=== PATIENT | female | born 1945 | race Caucasian/White ===

== ENCOUNTER 2016-10-08 00:09 | Inpatient (IN) | payer OTHER, MEDICARE ==
[2016-10-08] VITALS (34 sets, daily range): BP systolic 106–248; BP diastolic 56–124; PULSE 56–107; RESP 15–34; TEMP 97.6–98.4; O2SAT 66–99
[~2016-10-08] VITALS: Ht 157.5 cm; Wt 84.4 kg
[~2016-10-08 00:09] MED LIST: ASPI81TA82 PO; CLON-352 PO; METO50TA PO; TAB-TAB PO; TUMS500C PO; VITA100L SUCK-ON
[2016-10-08] MEDS ORDERED: ASPIRIN 81 MG CHEW TAB PO ONE (01:00)
[2016-10-08] MEDS ORDERED: SODIUM CHLORIDE 0.9% FLUSH 10 ML FLUSH IVF PRN ×2 (01:00→04:00)
[2016-10-08] MEDS: NITROGLYCERIN 0.4 MG SL 25 TABS/BTL SL SCH ×3 (01:13→01:32)
[2016-10-08] MEDS ORDERED: CLON0.1T PO (01:19)
[2016-10-08] MEDS ORDERED: METO50TA11 PO (01:19)
[2016-10-08] MEDS ORDERED: LOSA25TA PO (01:19)
[2016-10-08] MEDS ORDERED: METO50TA PO (01:19)
[2016-10-08 01:20] LABS: BASOPHIL % 0.6 % (0.0-2.0); EOSINOPHIL # 0.1 TH/MM3 (0-0.4); EOSINOPHIL % 1.2 % (0.0-4.0); HEMATOCRIT 37.3 % (35.0-46.0); HEMO FLAGS DIFF FINAL; LYMPHOCYTE # 2.1 TH/MM3 (1.0-4.8); MEAN CORPUSCULAR HEMOGLOBIN 29.3 PG (27.0-34.0); MEAN CORPUSCULAR HGB CONC 34.1 % (32.0-36.0); MONO % 8.3 % (0.0-8.0); NEUT % 62.9 % (16.0-70.0); PLATELET COUNT 197 TH/MM3 (150-450); RED BLOOD COUNT 4.34 MIL/MM3 (4.00-5.30); RED CELL DISTRIBUTION WIDTH 12.5 % (11.6-17.2); WHITE BLOOD COUNT 7.9 TH/MM3 (4.0-11.0)
[2016-10-08 01:24] LABS: CHLORIDE 101 MEQ/L (98-107); POTASSIUM 3.5 MEQ/L (3.5-5.1); SODIUM (NA) 138 MEQ/L (136-145)
[2016-10-08] MEDS ORDERED: ASPI325T PO (01:24)
[2016-10-08 01:27] LABS: ANION GAP 9 MEQ/L (5-15); BICARBONATE 28.5 MEQ/L (21.0-32.0); BLOOD UREA NITROGEN 18 MG/DL (7-18); MAGNESIUM 1.6 MG/DL (1.5-2.5)
[2016-10-08 01:30] LABS: GLOMERULAR FILTRATION RATE 56 ML/MIN (>89)
[2016-10-08 01:33] LABS: CREATINE KINASE 195 U/L (26-192)
[2016-10-08 01:34] LABS: APTT (PATIENT) 20.9 SEC (24.3-30.1); INTERNATIONAL NORMALIZED RATIO 0.9 RATIO; PROTHROMBIN TIME - PATIENT 10.3 SEC (9.8-11.6)
--- NOTE | 2016-10-08 01:35 | RADRPT ---
EXAM DATE/TIME: 10/08/2016 01:25 [facility] COMPARISON: No previous studies available for comparison. INDICATIONS : Left sided chest pain for 1 week MEDICAL HISTORY : None. SURGICAL HISTORY : None. ENCOUNTER: Initial ACUITY: 1 week PAIN SCORE: 7/10 LOCATION: Left chest FINDINGS: There is cardiomegaly. Lung volumes are diminished. Right lung is clear. On the left a small left eff usion or basilar airspace disease suspected. Osseous structures are intact. CONCLUSION: Blunted left lateral costophrenic angle increased density seen at the left lung base laterally as abo ve. Small effusion versus consolidation are possibilities. Ezra Tovar MD on October 08, 2016 at 1:33 Board Certified Radiologist. This report was verified electronically.
[2016-10-08] MEDS ORDERED: NITROGLYCERIN 2% OINT 1 GM PACKET TOPICAL ONE (01:45)
[2016-10-08] MEDS ORDERED: LABETALOL HCL 100 MG/20 ML VIAL IV PUSH ONE ×2 (01:45→03:00)
[2016-10-08 01:46] LABS: CKMB 2.2 NG/ML (0.5-3.6)
--- NOTE | 2016-10-08 02:21 | RADRPT ---
EXAM DATE/TIME: 10/08/2016 01:57 [facility] COMPARISON: No previous studies available for comparison. INDICATIONS : Cephalgia. Headache for one week. RADIATION DOSE: 60.08 CTDIvol (mGy) MEDICAL HISTORY : Cardiovascular disease. Hypercholesterolemia. Gastroesophageal reflux disease.Fibromyalgia SURGICAL HISTORY : Tonsillectomy. ENCOUNTER: Initial ACUITY: 1 week PAIN SCALE: 7/10 LOCATION: cranial TECHNIQUE: Multiple contiguous axial images were obtained of the head. Using automated exposure control and adj ustment of the mA and/or kV according to patient size, radiation dose was kept as low as reasonably a chievable to obtain optimal diagnostic quality images. DICOM format image data is available electro nically for review and comparison. FINDINGS: No signs of acute infarct, hemorrhage or mass. There are no fractures. There are calcifications of th e bilateral internal carotid arteries and patchy periventricular white matter disease. CONCLUSION: No acute disease. Ezra Tovar MD on October 08, 2016 at 2:19 Board Certified Radiologist. This report was verified electronically.
[2016-10-08] MEDS ORDERED: IOHEXOL 350 MG/ML 10 ML VIAL (for RAD DIAG) IV ONE (02:47)
--- NOTE | 2016-10-08 03:06 | PD ---
HPI Chief Complaint: Chest Pain Time Seen by Provider: 00:56 Travel History International Travel<30 days: No Contact w/Intl Traveler<30days: No Traveled to known affect area: No History of Present Illness HPI 71-year-old female presents to the emergency department by private transportation for complaint of inability to control her blood pressure and noticing some chest discomfort. Patient has high blood pressure. Patient states she takes multiple blood pressure medications and this week because of her blood pressure remaining elevated she has doubled up on all of her blood pressure medications but continues to have issues with blood pressure elevation. Patient states that she's had no change in mentation or sudden onset thunderclap or worst ever headache but has noted some intermittent blurring of vision and some intermittent chest discomfort. Chest discomfort is left-sided and is nonradiating and is not associated with ripping tearing type pain or pleuritic type pain. Patient does not report any shortness of breath sweats or nausea vomiting. Patient has not noticed any new upper extremity or lower extremity numbness tingling or weakness or ataxia of gait. Patient does have chronic peripheral neuropathy and has had some chronic balance disturbance but does not note any new changes. Patient states that times chest pain is quite severe but presently has no chest pain. Patient does take aspirin daily and took aspirin on but none just prior to arrival to the emergency department. Patient has not contacted her primary care provider regarding her difficulty handling her blood pressure as she has appointment next week and just thought she could wait to be seen. Patient's had no recent febrile illness or respiratory illness no recent long distance travel protracted bedrest her surgical procedure. [facility]LY [facility] Past Medical History Narrative Medical Mitral valve prolapse, intermittent SVT, dyslipidemia, hypertension, fibromyalgia GERD tonsillectomy no tobacco use; nursing notes reviewed Heart Rhythm Problems: Yes (TACHYCARDIA) Cardiovascular Problems: Yes (MVP) High Cholesterol: Yes Diminished Hearing: No Fibromyalgia: Yes GERD: Yes Hypertension: Yes Immunizations Current: No Tetanus Vaccination: > 5 Years Menopausal: Yes Past Surgical History Tonsillectomy: Yes Social History Alcohol Use: No Tobacco Use: No Substance Use: No Allergies-Medications (Allergen,Severity, Reaction): Coded Allergies: Penicillin (Verified Allergy, Mild, HIVES, 10/08/16) Morphine (Verified Adverse Reaction, Severe, NAUSEA/VOMITS, 10/08/16) Niacin (Unverified Adverse Reaction, Intermediate, 10/08/16) Uncoded Allergies: water pills (Allergy, Unknown, nausea: h/a, 09/06/08) Reported Meds & Prescriptions Reported Meds & Active Scripts Active Reported Aspirin 325 Mg Tab 650 Mg PO ONCE Losartan (Losartan Potassium) 25 Mg Tab 25 Mg PO HS Clonidine (Clonidine HCl) 0.1 Mg Tab 0.1 Mg PO TID Metoprolol Succinate ER 24 HR (Metoprolol Succinate) 50 Mg Tab 50 Mg PO DAILY Metoprolol Tartrate 50 Mg Tab 50 Mg PO BID Review of Systems Except as stated in HPI: all other systems reviewed are Neg General / Constitutional: No: Fever, Chills Eyes: Positive: Blurred Vision, No: Diploplia, Photophobia, Blind Spots HENT: No: Headaches, Vertigo, Lightheadedness, Congestion, Neck Stiffness, Neck Pain Cardiovascular: Positive: Chest Pain or Discomfort, No: Diaphoresis, Dyspnea on exertion, Edema Respiratory: No: Cough, Shortness of Breath, Wheezing Gastrointestinal: No: Nausea, Vomiting, Abdominal Pain Genitourinary: No: Flank Pain Musculoskeletal: No: Myalgias, Arthralgias, Pain Skin: No Rash Neurologic: No: Weakness, Dizziness, Syncope, Focal Abnormalities, Coordination Problem, Headache, Change in Mentation, Slurred Speech, Paresthesia , Incontinence, Seizures, Sensory Disturbance Psychiatric: Positive: Anxiety Hematologic/Lymphatic: No: Lymph Node Enlargement Physical Exam Narrative GENERAL: Well-developed well-nourished female in no acute distress no respiratory distress SKIN: Warm and dry. HEAD: Atraumatic. Normocephalic. EYES: Pupils equal and round. No scleral icterus. No injection or drainage. ENT: No nasal bleeding or discharge. Mucous membranes pink and moist. NECK: Trachea midline. No JVD. CARDIOVASCULAR: Regular rate and rhythm. RESPIRATORY: No accessory muscle use. Clear to auscultation. Breath sounds equal bilaterally. GASTROINTESTINAL: Abdomen soft, non-tender, nondistended. Hepatic and splenic margins not palpable. MUSCULOSKELETAL: Extremities without clubbing, cyanosis, or edema. No obvious deformities. NEUROLOGICAL: Awake and alert. No obvious cranial nerve deficits. Motor grossly within normal limits. Five out of 5 muscle strength in the arms and legs. Normal speech. PSYCHIATRIC: Appropriate mood and affect; insight and judgment normal. Data Data Last Documented VS Vital Signs Date Time Temp Pulse Resp B/P Pulse Ox O2 Delivery O2 Flow Rate FiO2 10/08/16 03:48 73 190/93 10/08/16 03:16 18 Room Air 10/08/16 03:06 96 10/08/16 01:38 2 10/08/16 00:17 97.8 Orders Electrocardiogram (10/08/16 00:56) Basic Metabolic Panel (Bmp) (10/08/16 00:56) Ckmb (Isoenzyme) Profile (10/08/16 00:56) Complete Blood Count With Diff (10/08/16 00:56) Magnesium (Mg) (10/08/16 00:56) Prothrombin Time / Inr (Pt) (10/08/16 00:56) Act Partial Throm Time (Ptt) (10/08/16 00:56) Troponin I (10/08/16 00:56) Chest, Single Ap (10/08/16 00:56) Ecg Monitoring (10/08/16 00:56) Bilateral Bp Monitoring (10/08/16 00:56) Iv Access Insert/Monitor (10/08/16 00:56) Oximetry (10/08/16 00:56) Oxygen Administration (10/08/16 00:56) Aspirin Chew (Aspirin Chew) (10/08/16 01:00) Sodium Chloride 0.9% Flush (Ns Flush) (10/08/16 01:00) Nitroglycerin Sl (Nitrostat Sl) (10/08/16 01:00) CKMB (10/08/16 01:05) CKMB% (10/08/16 01:05) Ct Brain W/O Iv Contrast(Rout) (10/08/16 ) Cta Thor Abd Aorta W Iv C W3d (10/08/16 ) Labetalol Inj (Trandate Inj) (10/08/16 01:45) Nitroglycerin 2% Oint (Nitroglycerin 2% (10/08/16 01:45) Labetalol Inj (Trandate Inj) (10/08/16 03:00) Iohexol 350 Inj (Omnipaque 350 Inj) (10/08/16 02:47) Enalaprilat Inj (Vasotec Inj) (10/08/16 03:15) Labetalol Inj (Trandate Inj) (10/08/16 03:45) Labetalol Inj (Trandate Inj) (10/08/16 03:45) Hydralazine Inj (Apresoline Inj) (10/08/16 03:45) Labs Laboratory Tests Test 10/08/16 01:05 White Blood Count 7.9 TH/MM3 Red Blood Count 4.34 MIL/MM3 Hemoglobin 12.7 GM/DL Hematocrit 37.3 % Mean Corpuscular Volume 86.0 FL Mean Corpuscular Hemoglobin 29.3 PG Mean Corpuscular Hemoglobin 34.1 % Concent Red Cell Distribution Width 12.5 % Platelet Count 197 TH/MM3 Mean Platelet Volume 8.1 FL Neutrophils (%) (Auto) 62.9 % Lymphocytes (%) (Auto) 27.0 % Monocytes (%) (Auto) 8.3 % Eosinophils (%) (Auto) 1.2 % Basophils (%) (Auto) 0.6 % Neutrophils # (Auto) 5.0 TH/MM3 Lymphocytes # (Auto) 2.1 TH/MM3 Monocytes # (Auto) 0.7 TH/MM3 Eosinophils # (Auto) 0.1 TH/MM3 Basophils # (Auto) 0.0 TH/MM3 CBC Comment DIFF FINAL Differential Comment Prothrombin Time 10.3 SEC Prothromb Time International 0.9 RATIO Ratio Activated Partial 20.9 SEC Thromboplast Time Sodium Level 138 MEQ/L Potassium Level 3.5 MEQ/L Chloride Level 101 MEQ/L Carbon Dioxide Level 28.5 MEQ/L Anion Gap 9 MEQ/L Blood Urea Nitrogen 18 MG/DL Creatinine 0.98 MG/DL Estimat Glomerular Filtration 56 ML/MIN Rate Random Glucose 114 MG/DL Calcium Level 10.0 MG/DL Magnesium Level 1.6 MG/DL Total Creatine Kinase 195 U/L Creatine Kinase MB 2.2 NG/ML Creatine Kinase MB % 1.1 % Troponin I LESS THAN 0.02 NG/ML MDM Medical Decision Making Medical Screen Exam Complete: Yes Emergency Medical Condition: Yes Medical Record Reviewed: Yes Interpretation(s) EKG: Normal sinus rhythm rate 74 left axis deviation no acute ST elevation or injury pattern change or ectopy noted CK 195 mildly elevated CK-MB percent 1.1% not elevated; troponin I less than 0.02, not elevated CBC is automated differential within normal limits; metabolic panel grossly within normal range; regulation studies within normal limits CBC & BMP Diagram 10/08/16 01:05 Differential Diagnosis Hypertensive urgency, hypertensive crisis, ACS, MS, aortic dissection, aneurysm , CVA, TIA, adverse medication reaction, electrolyte disturbance, arrhythmia Narrative Course Patient placed on cardiac nurse IV access obtained patient administered aspirin and sublingual nitroglycerin EKG performed which reveals no acute injury pattern change Patient chest pain-free after sublingual nitroglycerin 3 and blood pressure has decreased to 158/86; CBC out of all of panel cardiac enzymes found to be in normal range; CT brain noncontrast along with CTA of the thorax and abdomen ordered Patient was recurrent elevation of blood pressure nitroglycerin paste applied to the chest wall Patient returns from CT and blood pressure remains elevated patient administered labetalol 20 mg IV and [address] brain noncontrast reveals no acute abnormality; CTA pending Vasotec 1.25 mg iv administered Patient administered additional labetalol and then hydralazine patient CTA no dissection " mild ascending aorta aneurysmal dilatation: ; -- plan admit to the ICU on Labetalol infusion; patient aware; patient has been discussed with personnel consultant and [facility] Physician Communication Physician Communication call placed to [facility] service for admission to ICU; discussed with personnel consultant -- Dr Nascimento, will see in consultation as needed Diagnosis Primary Impression: Hypertensive urgency Admitting Information Admitting Physician Requests: Admit Mireya Davis MD Oct 08, 2016 03:06
[2016-10-08] MEDS ORDERED: ENALAPRILAT 1.25 MG/ML VIAL IV PUSH ONE (03:15)
--- NOTE | 2016-10-08 03:30 | RADRPT ---
EXAM DATE/TIME: 10/08/2016 02:12 This report includes an Addendum and supersedes previous reports for this exam. [facility] COMPARISON: CT ABDOMEN & PELVIS W CONTRAST, May 27, 2009, 17:13. INDICATIONS : Left shoulder pain for 2 days. Rule out aortic dissection. IV CONTRAST: 99 cc Omnipaque 350 (iohexol) IV RADIATION DOSE: 21.80 CTDIvol (mGy) MEDICAL HISTORY : Hypercholesterolemia. Gastroesophageal reflux disease. Cardiovascular diseasefibromyalgia, HTN SURGICAL HISTORY : Tonsillectomy. ENCOUNTER: Initial ACUITY: 2 days PAIN SCALE: 8/10 LOCATION: Left shoulder TECHNIQUE: Volumetric scanning was performed using a multi-row detector CT scanner. The data was post processed with a variety of visualization algorithms including full volume maximum intensity projection, multi -planar sliding thin slab reformation, curved planar reformation, and surface rendering techniques. Using automated exposure control and adjustment of the mA and/or kV according to patient size, radiat ion dose was kept as low as reasonably achievable to obtain optimal diagnostic quality images. DICOM format image data is available electronically for review and comparison. FINDINGS: Emphysematous changes are identified. Coronary artery calcification is present. There is mild aneurys mal dilatation of the ascending aorta which measures 4.1 x 0.9 cm on axial image 38. Atherosclerotic calcific and soft plaque deposition of the aorta, great vessels and coronary arteries identified. The re is no evidence for aortic dissection. Atherosclerotic plaquing of the abdominal aorta and its bran ches is also noted. There is severe diverticulosis of the sigmoid colon and descending colon. Appendi x normal. Urinary bladder, uterus and adnexa are unremarkable. Kidneys, spleen, pancreas, adrenal gla nds and gallbladder are unremarkable. There is fatty infiltration of the liver. CONCLUSION: 1. Atherosclerosis. 2. No evidence for aortic dissection. 3. Mild aneurysmal dilatation of the ascending aorta. Ezra Tovar MD on October 08, 2016 at 3:26 Board Certified Radiologist. This report was verified electronically. ADDENDUM: Right renal artery is widely patent without significant atherosclerotic disease or stenosis. Left renal artery contains calcified plaque at its origin with mild stenosis in the 0-30% range. Renal vasculature is otherwise unremarkable. Bryce Murphy MD on October 10, 2016 at 8:38 Board Certified Radiologist. This report was verified electronically.
[2016-10-08] MEDS ORDERED: LABETALOL HCL 100 MG/20 ML VIAL IVP ONE (03:45)
[2016-10-08] MEDS ORDERED: hydrALAZINE HCL 20 MG/ML VIAL IV PUSH ONE (03:45)
[2016-10-08] MEDS ORDERED: LABETALOL INJ 500 MG in SODIUM CHLORIDE 0.9% INJ 150 ML IV SCH (03:45)
[2016-10-08] MEDS ORDERED: SODIUM CHLORIDE 0.9% FLUSH 10 ML FLUSH IV FLUSH PRN (04:00)
[2016-10-08] MEDS ORDERED: NALOXONE HCL 0.4 MG/ML AMP IV PRN (04:00)
[2016-10-08] MEDS ORDERED: ONDANSETRON HCL 4 MG/2 ML VIAL IV PUSH ONE (04:15)
[2016-10-08] MEDS ORDERED: HYDROmorphone HCL PF 1 MG/ML VIAL IV PUSH ONE (04:15)
[2016-10-08] MEDS ORDERED: KETOROLAC TROMETHAMINE 30 MG/ML (IVP) VIAL IV PUSH ONE (04:30)
[2016-10-08] MEDS ORDERED: hydrALAZINE HCL 50 MG TAB PO PRN (05:45)
[2016-10-08] MEDS ORDERED: LABETALOL HCL 100 MG/20 ML VIAL IV PUSH PRN (05:45)
[2016-10-08] MEDS: cloNIDine HCL 0.3 MG TAB PO SCH ×3 (06:11→22:00)
[2016-10-08] MEDS: LOSARTAN 50 MG TAB PO SCH ×2 (06:11→09:00)
[2016-10-08] MEDS: SODIUM CHLORIDE 0.9% FLUSH 10 ML FLUSH IV FLUSH SCH ×2 (09:00→20:15)
[2016-10-08] MEDS ORDERED: SODIUM CHLORIDE 0.9% FLUSH 10 ML FLUSH IV FLUSH SCH (09:00)
[2016-10-08] MEDS: METOPROLOL TARTRATE 50 MG TAB PO SCH ×2 (09:00→20:15)
[2016-10-09] VITALS (20 sets, daily range): BP systolic 115–219; BP diastolic 63–101; PULSE 54–76; RESP 14–41; TEMP 96.9–98; O2SAT 90–98
[2016-10-09] MEDS: cloNIDine HCL 0.3 MG TAB PO SCH (06:00)
[2016-10-09 06:05] LABS: AUTOMATED NEUTROPHIL # 4.3 TH/MM3 (1.8-7.7); BASOPHIL % 0.5 % (0.0-2.0); EOSINOPHIL # 0.1 TH/MM3 (0-0.4); EOSINOPHIL % 1.2 % (0.0-4.0); HEMATOCRIT 34.9 % (35.0-46.0); HEMO FLAGS DIFF FINAL; LYMPHOCYTE # 1.6 TH/MM3 (1.0-4.8); MEAN CELL VOLUME 86.5 FL (80.0-100.0); MEAN CORPUSCULAR HEMOGLOBIN 29.2 PG (27.0-34.0); MEAN CORPUSCULAR HGB CONC 33.8 % (32.0-36.0); MONO % 7.4 % (0.0-8.0); NEUT % 65.9 % (16.0-70.0); PLATELET COUNT 166 TH/MM3 (150-450); RED BLOOD COUNT 4.04 MIL/MM3 (4.00-5.30); RED CELL DISTRIBUTION WIDTH 12.9 % (11.6-17.2); WHITE BLOOD COUNT 6.5 TH/MM3 (4.0-11.0)
[2016-10-09 06:07] LABS: POTASSIUM 4.2 MEQ/L (3.5-5.1)
[2016-10-09 06:25] LABS: BICARBONATE 30.6 MEQ/L (21.0-32.0)
[2016-10-09] MEDS: METOPROLOL TARTRATE 50 MG TAB PO SCH ×2 (07:52→20:32)
[2016-10-09] MEDS: LOSARTAN 50 MG TAB PO SCH (07:53)
[2016-10-09] MEDS: SODIUM CHLORIDE 0.9% FLUSH 10 ML FLUSH IV FLUSH SCH ×2 (07:56→20:33)
[2016-10-09] MEDS ORDERED: LOSARTAN 50 MG TAB PO ONE (09:45)
--- NOTE | 2016-10-09 10:05 | HHI.HP ---
HPI Service [facility] Hospitalists Primary Care Physician Raffy Yarbrough Do, MD Admission Diagnosis Hypertensive urgency Diagnoses: Chief Complaint: Chest pain Travel History International Travel<30 Days: No Contact w/Intl Traveler <30 Da: No Traveled to Known Affected Are: No History of Present Illness This is a 71-year-old female with reported past medical history of hypertension , SVT, hyperlipidemia, GERD who presented to [facility] complaining of chest pain and inability to control her blood pressure. The patient states that she takes multiple blood pressure medications and this past week because of her blood pressure remaining elevated she has doubled up on all her blood pressure medications but continues to have issues with that. Patient states that she has also had on-and-off chest pain, described as if "someone is squeezing my heart". Patient stated that yesterday she had chest pain which would radiate to the left side of the neck and the shoulder. Patient states that the chest pain subsided after her blood pressure was controlled in the emergency department. Patient also has been complaining of lightheadedness and headache which she attributes to her uncontrolled blood pressure. The moment of this interview the patient is complaining of reflux and heartburn. Denies chest pain or shortness of breath. She states that she has been nauseous and has had issues with heartburn which resolved after taking Tums. The patient denies fevers or chills, cough, diarrhea. States that she has been having palpitations while hospitalized although there is no evidence of arrhythmias on telemetry. The patient was seen in emergency department and found to have a very elevated blood pressure in the 220s systolic. The patient was then started on a labetalol drip which has been discontinued. Blood pressure improved transiently but now seems to be going up. Patient was also given aspirin and placed on a nitroglycerin patch. Review of Systems As per history of present illness, other systems are reviewed by me and negative. Past Family Social History Past Medical History Hypertension Hyperlipidemia Peripheral neuropathy GERD Past Surgical History Tonsillectomy Reported Medications Aspirin 81 mg by mouth daily Calcium carbonate 1200 mg by mouth twice a day when necessary heartburn Clonidine 0.1 mg by mouth twice a day Vitamin B12 100 g daily Toprol tartrate 50 minutes by mouth twice a day Vitamin daily Losartan 25 mg by mouth at at bedtime Metoprolol succinate extended release 50 mg by mouth at at bedtime Toprol tartrate 50 mg by mouth twice a day. Allergies: Coded Allergies: Penicillin (Verified Allergy, Mild, HIVES, 10/08/16) Morphine (Verified Adverse Reaction, Severe, NAUSEA/VOMITS, 10/08/16) Niacin (Unverified Adverse Reaction, Intermediate, 10/08/16) Uncoded Allergies: water pills (Allergy, Unknown, nausea: h/a, 09/06/08) Active Ordered Medications Current Medications Medications (Trade) Dose Ordered Sig/Dinora Route Start Time Stop Time Status Last Admin (Narcan Inj) 0.4 mg UNSCH PRN IV 10/08/16 04:00 (NS Flush) 2 ml BID IV FLUSH 10/08/16 09:00 10/09/16 07:56 (NS Flush) 2 ml UNSCH PRN IVF 10/08/16 04:00 (Catapres) 0.3 mg Q8HR PO 10/08/16 06:00 10/09/16 06:00 (Lopressor) 50 mg Q12HR PO 10/08/16 09:00 10/09/16 07:52 (Cozaar) 50 mg DAILY PO 10/08/16 05:34 10/09/16 07:53 (Apresoline) 50 mg Q8H PRN PO 10/08/16 05:45 (Trandate Inj) 20 mg Q15M PRN IV PUSH 10/08/16 05:45 (Apresoline Inj) 10 mg Q30M PRN IV PUSH 10/08/16 05:45 10/09/16 10:42 (Tylenol) 650 mg Q4H PRN PO 10/08/16 15:00 (Catapres) 0.1 mg TID PO 10/09/16 13:00 Family History Patient's father of [place] at age 42 Patient's mother from a stroke at age 70 Social History The patient is a former smoker over quit smoking in the 80s. Denies alcohol intake Denies illicit drug use Physical Exam Vital Signs Vital Signs Date Time Temp Pulse Resp B/P Pulse Ox O2 Delivery O2 Flow Rate FiO2 10/09/16 09:00 62 28 170/88 92 10/09/16 08:55 60 26 176/64 93 10/09/16 08:00 68 29 219/96 96 10/09/16 07:56 95 Room Air 10/09/16 07:45 74 39 195/101 10/09/16 07:37 62 41 181/101 10/09/16 04:00 98.0 54 16 145/78 96 10/09/16 04:00 54 10/09/16 00:00 97.7 62 20 115/65 94 10/09/16 00:00 62 10/08/16 20:00 64 10/08/16 20:00 98.4 64 23 147/63 95 10/08/16 19:53 93 21 10/08/16 19:00 95 Nasal Cannula 2.00 10/08/16 16:00 64 34 151/83 94 10/08/16 15:33 62 15 140/73 91 10/08/16 15:13 130/70 10/08/16 14:33 64 22 167/84 95 10/08/16 14:00 60 16 155/68 94 10/08/16 12:00 97.6 56 17 121/61 97 10/08/16 11:00 56 19 131/68 92 Physical Exam GENERAL: This is a well-nourished, well-developed patient, in no apparent distress. SKIN: No rashes, ecchymoses or lesions. Cool and dry. HEAD: Atraumatic. Normocephalic. No temporal or scalp tenderness. EYES: Pupils equal round and reactive. Extraocular motions intact. No scleral icterus. No injection or drainage. ENT: Nose without bleeding, purulent drainage or septal hematoma. Throat without erythema, tonsillar hypertrophy or exudate. Uvula midline. Airway patent. NECK: Trachea midline. No JVD or lymphadenopathy. Supple, nontender, no meningeal signs. CARDIOVASCULAR: Regular rate and rhythm, systolic murmur 3/6 best heard over at the right second intercostal space. No rubs or gallops auscultated. Loud S2. RESPIRATORY: Clear to auscultation. Breath sounds equal bilaterally. No wheezes , rales, or rhonchi. GASTROINTESTINAL: Abdomen soft, non-tender, nondistended. No hepato-splenomegaly , or palpable masses. No guarding. MUSCULOSKELETAL: Extremities without clubbing, cyanosis, or edema. No joint tenderness, effusion, or edema noted. No calf tenderness. Negative Homans sign bilaterally. NEUROLOGICAL: Awake and alert. Cranial nerves II through XII intact. Motor and sensory grossly within normal limits. Five out of 5 muscle strength in all muscle groups. Normal speech. Laboratory Laboratory Tests Test 10/09/16 05:32 White Blood Count 6.5 Red Blood Count 4.04 Hemoglobin 11.8 Hematocrit 34.9 Mean Corpuscular Volume 86.5 Mean Corpuscular Hemoglobin 29.2 Mean Corpuscular Hemoglobin 33.8 Concent Red Cell Distribution Width 12.9 Platelet Count 166 Mean Platelet Volume 7.7 Neutrophils (%) (Auto) 65.9 Lymphocytes (%) (Auto) 25.0 Monocytes (%) (Auto) 7.4 Eosinophils (%) (Auto) 1.2 Basophils (%) (Auto) 0.5 Neutrophils # (Auto) 4.3 Lymphocytes # (Auto) 1.6 Monocytes # (Auto) 0.5 Eosinophils # (Auto) 0.1 Basophils # (Auto) 0.0 CBC Comment DIFF FINAL Differential Comment Sodium Level 140 Potassium Level 4.2 Chloride Level 103 Carbon Dioxide Level 30.6 Anion Gap 6 Blood Urea Nitrogen 12 Creatinine 0.78 Estimat Glomerular Filtration 73 Rate Random Glucose 111 Calcium Level 9.1 Result Diagram: 10/09/16 0532 10/09/16 0532 Imaging Last Impressions Chest X-Ray 10/08/16 0056 Signed Impressions: Service Date/Time: Saturday, October 08, 2016 01:25 - CONCLUSION: Blunted left lateral costophrenic angle increased density seen at the left lung base laterally as above. Small effusion versus consolidation are possibilities. Ezra Tovar MD Head CT 10/08/16 0000 Signed Impressions: Service Date/Time: Saturday, October 08, 2016 01:57 - CONCLUSION: No acute disease. Ezra Tovar MD Aorta CTA 10/08/16 0000 Signed Impressions: Service Date/Time: Saturday, October 08, 2016 02:12 - CONCLUSION: 1. Atherosclerosis. 2. No evidence for aortic dissection. 3. Mild aneurysmal dilatation of the ascending aorta. Ezra Tovar MD Assessment and Plan Problem List: (1) Hypertensive urgency ICD Code: I16.0 Status: Acute Plan: Admit the patient to intensive care unit, monitor vital signs Resume home medications. Patient is on clonidine 0.3 mg by mouth every 8 hours , however she was once on 0.1 minutes by mouth 3 times a day. I will discontinue clonidine 0.3 mg every 8 hours and continue findings are 0.1 mg by mouth 3 times a day. Continue metoprolol 50 ng by mouth every 12 hours. I will increase losartan 200 mg by mouth daily. Continue to monitor blood pressure and adjust antihypertensive medications as needed. Patient is currently off labetalol drip, continue hydralazine and labetalol when necessary. (2) Chest pain ICD Code: R07.9 Status: Acute Plan: Patient has been complaining of chest pain on and off. Likely secondary to hypertensive urgency. Chest x-ray shows a blunted left lateral costophrenic angle, increased density seen at the left lung base. Small effusion versus consolidation listed as possibilities CTA of the thoracic aorta with IV contrast showed emphysematous changes. Coronary artery calcifications. Mild aneurysmal dilatation of the ascending aorta which measures 4.10.9 cm. No evidence of aortic dissection. Severe diverticulosis of the sigmoid colon and descending colon. Fatty infiltration of the liver. EKG on admission shows sinus rhythm with a ventricular rate of 74 bpm, no ST-T changes suggestive of ischemia. Repeat EKG. Troponin negative on admission, we'll repeat cardiac enzymes today. Consult cardiology - Dr Brenner Continue aspirin 325 mg by mouth daily. Continue nitroglycerin sublingual as needed for chest pain. (3) GERD (gastroesophageal reflux disease) ICD Code: K21.9 Status: Acute Plan: The patient states she has had ulcers since she is 7 years old. She suffers from reflux symptoms for which she takes Tums. Patient however states she has never had upper endoscopy despite the prolonged symptoms. I will start the patient on Protonix and also continue calcium carbonate tablets. If symptoms do not improve with the above-mentioned measures then will considering consulting GI, otherwise the patient can follow-up as an outpatient. (4) Hyperglycemia ICD Code: R73.9 Status: Acute Plan: No previous history of diabetes. Possibly secondary to stress. Check hemoglobin A1c. (5) Aortic aneurysm ICD Code: I71.9 Status: Acute Plan: Seen on CTA of the chest. Needs to be followed up as an outpatient with vascular surgery. (6) Headache ICD Code: R51 Status: Acute Plan: Likely related to uncontrolled hypertension. CT of the head obtained on admission and negative for acute disease. Physician Certification 2 Midnight Certification Type: Admission for Inpatient Services Order for Inpatient Services The services are ordered in accordance with Medicare regulations or non- Medicare payer requirements, as applicable. In the case of services not specified as inpatient-only, they are appropriately provided as inpatient services in accordance with the 2-midnight benchmark. Estimated LOS (days): 2 days is the estimated time the patient will need to remain in the hospital, assuming treatment plan goals are met and no additional complications. Post-Hospital Plan: Not yet determined Problem Qualifiers (1) Chest pain: Qualified Code: R07.9 - Chest pain, unspecified type (2) GERD (gastroesophageal reflux disease): Qualified Code: K21.9 - Gastroesophageal reflux disease, esophagitis presence not specified (3) Headache: Qualified Code: R51 - Acute nonintractable headache, unspecified headache type Yuri Vences MD Oct 09, 2016 10:05
[2016-10-09] MEDS: hydrALAZINE HCL 20 MG/ML VIAL IV PUSH PRN (10:42)
--- NOTE | 2016-10-09 10:55 | EKG ---
Date Performed: 10/08/2016 Time Performed: 01:19:30 PTAGE: 71 years EKG: Sinus rhythm MARKED LEFT AXIS DEVIATION ABNORMAL ECG PREVIOUS TRACING : 04/24/2002 15.37 DOCTOR: Dung Celis Interpretating Date/Time 10/09/2016 10:52:11
[2016-10-09 11:57] LABS: CREATINE KINASE 564 U/L (26-192)
[2016-10-09 12:10] LABS: CKMB 3.9 NG/ML (0.5-3.6)
[2016-10-09] MEDS: cloNIDine HCL 0.1 MG TAB PO SCH ×2 (12:33→17:17)
[2016-10-09] MEDS: ACETAMINOPHEN 325 MG TAB PO PRN (17:15)
--- NOTE | 2016-10-09 18:16 | MB ---
cc: PAOLO TORREZ MD DATE OF CONSULTATION: 10/09/2016. REASON FOR CONSULTATION: Atypical chest pain. Hypertension. Palpitations. HISTORY OF PRESENT ILLNESS: The patient is a pleasant 71-year-old woman who sees my colleague, Dr. Scott, and who has a long history of palpitations. The patient was feeling poorly yesterday with generalized aches including in her chest and head and took her blood pressure and it was found to be significantly elevated so she presented to the emergency department where her initial blood pressures were up to 248/96; these have come down, and her most recent blood pressures have been in the 120s/60s. Currently she is asymptomatic and denying any residual chest discomfort, shortness of breath, lightheadedness or dizziness. PAST MEDICAL HISTORY: 1. PVCs. 2. Arrhythmia (poorly described. The patient uses several words such as PVCs and VT but again, quite unclear what this true arrhythmia is, was diagnosed in the '70s). 3. Gastroesophageal reflux disease (GERD). 4. Hypertension. 5. Obesity. CURRENT MEDICATIONS: 1. Clonidine 0.1 milligrams three times a day. 2. Lopressor 50 milligrams q. 12. 3. Cozaar 50 milligrams daily. ALLERGIES: 1. MORPHINE. 2. NIACIN. 3. PENICILLIN. 4. "WATER PILLS". PHYSICAL EXAMINATION: VITAL SIGNS: Afebrile, pulse 60, respiratory rate 20, blood pressure 129/65, satting 98% on room air. GENERAL: A pleasant well-appearing obese woman in no distress. NECK: No jugular venous distention. LUNGS: Clear to auscultation bilaterally. CARDIOVASCULAR: Regular rate and rhythm. A 2/6 systolic murmur is appreciated. ABDOMEN: Benign. EXTREMITIES: No edema. LABORATORY DATA: INR is 0.9. Sodium 140, potassium 4.2, chloride 103, bicarbonate 30.6, BUN 12, creatinine 0.78. Cardiac enzymes are negative x2. EKGS: EKG shows sinus rhythm with left axis deviation but no acute S-T or T-wave changes. IMPRESSION: 1. Hypertension. The patient presented with hypertensive urgency which has now resolved on her current medications. She has already had a CTA and I will ask the radiologist to comment on her . 2. Chest pain. The patient's chest pain is fairly atypical. I will have her undergo a nuclear stress test tomorrow. If her stress test tomorrow is normal, I except she can be discharged home with follow up with Dr. Scott. Thank you again for the opportunity to participate in this patient's care. MD NEWTON Gregory/ROCAEL /6:05 PM /6:11 PM
[2016-10-09] MEDS ORDERED: cloNIDine HCL 0.1 MG TAB PO ONE (21:15)
[2016-10-10] VITALS (13 sets, daily range): BP systolic 142–225; BP diastolic 69–122; PULSE 63–74; RESP 18–20; TEMP 95.5–97.6; O2SAT 95–97
[2016-10-10] MEDS: ACETAMINOPHEN 325 MG TAB PO PRN ×2 (04:30→20:12)
[2016-10-10] MEDS: hydrALAZINE HCL 20 MG/ML VIAL IV PUSH PRN ×2 (05:53→06:26)
--- NOTE | 2016-10-10 08:18 | PD.CARD.PN ---
Subjective Subjective Remarks Pt has had difficult bp's overnight, now improved, but she gets flushed and chest/shoulder aches when bp is high; when bp is normal she gets headaches. Objective Medications Administered Medications Medications (Trade) Dose Ordered Sig/Dinora Route PRN Reason Start Time Stop Time Status Last Admin Dose Admin Sodium Chloride (NS Flush) 2 ml BID IV FLUSH 10/08/16 09:00 10/09/16 20:33 Metoprolol Tartrate (Lopressor) 50 mg Q12HR PO 10/08/16 09:00 10/09/16 20:32 Losartan Potassium (Cozaar) 50 mg DAILY PO 10/08/16 05:34 10/09/16 07:53 Hydralazine HCl (Apresoline Inj) 10 mg Q30M PRN IV PUSH sbp > 160 10/08/16 05:45 10/10/16 06:26 Acetaminophen (Tylenol) 650 mg Q4H PRN PO pain 1-10 or fever > 101.5 10/08/16 15:00 10/10/16 04:30 Clonidine (Catapres) 0.1 mg TID PO 10/09/16 13:00 10/09/16 12:33 Vital Signs / I&O Vital Signs Date Time Temp Pulse Resp B/P Pulse Ox O2 Delivery O2 Flow Rate FiO2 10/10/16 08:07 96.6 74 19 152/69 95 10/10/16 07:46 95 21 10/10/16 07:05 74 10/10/16 06:20 203/104 10/10/16 06:04 225/122 10/10/16 04:00 96.9 74 18 156/93 96 10/10/16 00:00 95.5 70 18 145/85 96 10/09/16 23:00 64 10/09/16 20:00 96.9 76 18 159/84 98 10/09/16 19:22 94 21 10/09/16 16:00 97.0 60 20 121/65 98 10/09/16 15:40 63 10/09/16 14:00 58 18 131/63 91 10/09/16 13:40 60 14 138/78 90 10/09/16 13:00 72 38 152/77 96 10/09/16 12:00 64 10/09/16 12:00 97.5 68 20 180/89 94 10/09/16 11:10 68 27 152/77 96 10/09/16 10:30 58 18 194/83 10/09/16 10:15 64 28 196/79 95 10/09/16 10:00 54 10/09/16 10:00 54 16 181/93 93 10/09/16 09:00 62 28 170/88 92 10/09/16 09:00 62 10/09/16 08:55 60 26 176/64 93 I/O 10/09/16 10/09/16 10/09/16 10/10/16 10/10/16 10/10/16 07:00 15:00 23:00 07:00 15:00 23:00 Intake Total 480 ml 480 ml 591 ml 0 ml Output Total 625 ml Balance 480 ml -145 ml 591 ml 0 ml Intake Oral 480 ml 480 ml 591 ml 0 ml Output Urine Total 625 ml # Voids 2 2 1 # Bowel Movements 0 0 0 Physical Exam GENERAL: This is a well-nourished, well-developed patient, in no apparent distress. CARDIOVASCULAR: Regular rate and rhythm without murmurs, gallops, or rubs. RESPIRATORY: Clear to auscultation. Breath sounds equal bilaterally. No wheezes , rales, or rhonchi. GASTROINTESTINAL: Abdomen soft, non-tender, nondistended. Normal active bowel sounds MUSCULOSKELETAL: Extremities without clubbing, cyanosis, or edema. NEURO: Alert & Oriented x4 to person, place, time, situation. Moves all ext x4 Laboratory Laboratory Tests Test 10/09/16 11:08 Total Creatine Kinase 564 U/L Creatine Kinase MB 3.9 NG/ML Creatine Kinase MB % 0.7 % Troponin I LESS THAN 0.02 NG/ML Imaging Last Impressions Chest X-Ray 10/08/16 0056 Signed Impressions: Service Date/Time: Saturday, October 08, 2016 01:25 - CONCLUSION: Blunted left lateral costophrenic angle increased density seen at the left lung base laterally as above. Small effusion versus consolidation are possibilities. Ezra Tovar MD Head CT 10/08/16 0000 Signed Impressions: Service Date/Time: Saturday, October 08, 2016 01:57 - CONCLUSION: No acute disease. Ezra Tovar MD Aorta CTA 10/08/16 0000 Signed Impressions: Service Date/Time: Saturday, October 08, 2016 02:12 - CONCLUSION: 1. Atherosclerosis. 2. No evidence for aortic dissection. 3. Mild aneurysmal dilatation of the ascending aorta. 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 Scott. Problem Qualifiers (1) Chest pain: Qualified Code: R07.9 - Chest pain, unspecified type (2) Headache: Qualified Code: R51 - Acute nonintractable headache, unspecified headache type Daniel Stringer MD Oct 10, 2016 08:17
[2016-10-10] MEDS: SODIUM CHLORIDE 0.9% FLUSH 10 ML FLUSH IV FLUSH SCH ×2 (08:36→20:13)
[2016-10-10] MEDS: METOPROLOL TARTRATE 50 MG TAB PO SCH ×2 (08:36→20:12)
[2016-10-10] MEDS: cloNIDine HCL 0.1 MG TAB PO SCH ×3 (08:36→17:30)
[2016-10-10] MEDS: LOSARTAN 50 MG TAB PO SCH (08:36)
[2016-10-10] MEDS ORDERED: REGADENOSON INJ 0.4 MG/5 ML SYR IV ONE (09:13)
--- NOTE | 2016-10-10 12:17 | RADRPT ---
EXAM DATE/TIME: 10/10/2016 09:13 CORRECTION Corrected on: October 11, 2016; Dyspnea, headache, neck pressure, abdominal pain and diaphoresis to Str ess symptoms of patients myocardial perfusion report from 10/10/16 [place] COMPARISON: No previous studies available for comparison. INDICATIONS : Hypertensive with left chest pain. Angina. DOSE: 26.2 mCi Tc99m Myoview at stress. 8.6 mCi Tc99m Myoview at rest. 0.4 mg Lexiscan STRESS SYMPTOMS: Dyspnea, headache, neck pressure, abdominal pain and diaphoresis EJECTION FRACTION: 68% MEDICAL HISTORY : Hypercholesterolemia. Renal failure, chronic. Gastroesophageal reflux disease. Hypertension. SURGICAL HISTORY : Tonsillectomy. ENCOUNTER: Initial ACUITY: 1 day PAIN SCALE: 7/10 LOCATION: Left chest TECHNIQUE: The patient underwent pharmacologic stress with infusion of prescribed dose. Continuous ECG tracing was monitored during stress. Gated SPECT imaging was performed after stress and conventional SPECT i maging was performed at rest. The examination was performed on a SPECT/CT scanner, both attenuation and non-corrected datasets were reviewed. FINDINGS: DISTRIBUTION: The maximum perfused segment at stress is in the lateral wall. PERFUSION STUDY: The pattern of perfusion at stress is within normal limits. GATED STUDY: There is intact wall motion and thickening without hypokinetic or dyskinetic segments. CONCLUSION: Normal examination. RISK CATEGORY: Low (<1% Annual Mortality Rate) Bryce Murphy MD on October 10, 2016 at 12:15 Board Certified Radiologist. This report was verified electronically. on October 11, 2016 at 13:16 Board Certified Radiologist. This report was verified electronically.
--- NOTE | 2016-10-10 13:19 | HHI.PR ---
Subjective Remarks Patient complaint of mild headache otherwise no complain Afebrile no chest pain or short of breath Objective Vitals Vital Signs Date Time Temp Pulse Resp B/P Pulse Ox O2 Delivery O2 Flow Rate FiO2 10/10/16 12:33 96.5 63 19 158/78 97 10/10/16 08:07 96.6 74 19 152/69 95 10/10/16 07:46 95 21 10/10/16 07:05 74 10/10/16 06:20 203/104 10/10/16 06:04 225/122 10/10/16 04:00 96.9 74 18 156/93 96 10/10/16 00:00 95.5 70 18 145/85 96 10/09/16 23:00 64 10/09/16 20:00 96.9 76 18 159/84 98 10/09/16 19:22 94 21 10/09/16 16:00 97.0 60 20 121/65 98 10/09/16 15:40 63 10/09/16 14:00 58 18 131/63 91 10/09/16 13:40 60 14 138/78 90 I/O 10/09/16 10/09/16 10/09/16 10/10/16 10/10/16 10/10/16 06:59 14:59 22:59 06:59 14:59 22:59 Intake Total 480 ml 480 ml 591 ml 0 ml Output Total 625 ml Balance 480 ml -145 ml 591 ml 0 ml Intake Oral 480 ml 480 ml 591 ml 0 ml Output Urine Total 625 ml # Voids 2 2 1 # Bowel Movements 0 0 0 Result Diagram: 10/09/16 0532 10/09/16 0532 Objective Remarks GENERAL: This is a well-nourished, well-developed patient, in no apparent distress. SKIN: No rashes, warm and dry HEAD: Atraumatic. Normocephalic. EYES: Pupils equal round and reactive. Extraocular motions intact. No scleral icterus. ENT: Nose without bleeding, or drainage, Airway patent. NECK: Trachea midline. Supple CARDIOVASCULAR: Regular rate and rhythm 3/6 systolic murmur. RESPIRATORY: Fair air entry bilaterally. No wheezes, rales, or rhonchi. GASTROINTESTINAL: Abdomen soft, non-tender, nondistended. Positive bowel sounds MUSCULOSKELETAL: Extremities without clubbing, cyanosis, or edema. Pedal pulses appreciated NEUROLOGICAL: Awake and alert. Moves all extremity. Normal speech.no focal neurological deficit A/P Problem List: (1) Hypertensive urgency ICD Code: I16.0 Status: Acute (2) Chest pain ICD Code: R07.9 Status: Acute (3) GERD (gastroesophageal reflux disease) ICD Code: K21.9 Status: Acute (4) Hyperglycemia ICD Code: R73.9 Status: Acute (5) Aortic aneurysm ICD Code: I71.9 Status: Acute (6) Headache ICD Code: R51 Status: Acute Assessment and Plan 10/10: Appreciate cardiology consultation, blood pressure better controlled 152/ 69 today, for nuclear stress test today Rhabdomyolysis with elevated CK increased from 195-564: iv ns started , repeat ck in am Initial A/P: (1) Hypertensive urgency Admit the patient to intensive care unit, monitor vital signs Resume home medications. Patient is on clonidine 0.3 mg by mouth every 8 hours , however she was once on 0.1 minutes by mouth 3 times a day. I will discontinue clonidine 0.3 mg every 8 hours and continue findings are 0.1 mg by mouth 3 times a day. Continue metoprolol 50 ng by mouth every 12 hours. I will increase losartan 200 mg by mouth daily. Continue to monitor blood pressure and adjust antihypertensive medications as needed. Patient is currently off labetalol drip, continue hydralazine and labetalol when necessary. (2) Chest pain Patient has been complaining of chest pain on and off. Likely secondary to hypertensive urgency. Chest x-ray shows a blunted left lateral costophrenic angle, increased density seen at the left lung base. Small effusion versus consolidation listed as possibilities CTA of the thoracic aorta with IV contrast showed emphysematous changes. Coronary artery calcifications. Mild aneurysmal dilatation of the ascending aorta which measures 4.10.9 cm. No evidence of aortic dissection. Severe diverticulosis of the sigmoid colon and descending colon. Fatty infiltration of the liver. EKG on admission shows sinus rhythm with a ventricular rate of 74 bpm, no ST-T changes suggestive of ischemia. Repeat EKG. Troponin negative on admission, we'll repeat cardiac enzymes today. Consult cardiology - Dr Brenner Continue aspirin 325 mg by mouth daily. Continue nitroglycerin sublingual as needed for chest pain. (3) GERD (gastroesophageal reflux disease) The patient states she has had ulcers since she is 7 years old. She suffers from reflux symptoms for which she takes Tums. Patient however states she has never had upper endoscopy despite the prolonged symptoms. I will start the patient on Protonix and also continue calcium carbonate tablets. If symptoms do not improve with the above-mentioned measures then will considering consulting GI, otherwise the patient can follow-up as an outpatient. (4) Hyperglycemia No previous history of diabetes. Possibly secondary to stress. Check hemoglobin A1c. (5) Aortic aneurysm - Seen on CTA of the chest. Needs to be followed up as an outpatient with vascular surgery. (6) Headache Likely related to uncontrolled hypertension. CT of the head obtained on admission and negative for acute disease. Problem Qualifiers (1) Chest pain: Qualified Code: R07.9 - Chest pain, unspecified type (2) GERD (gastroesophageal reflux disease): Qualified Code: K21.9 - Gastroesophageal reflux disease, esophagitis presence not specified (3) Headache: Qualified Code: R51 - Acute nonintractable headache, unspecified headache type Rachele Hendrickson MD Oct 10, 2016 13:19
[2016-10-10] MEDS: SODIUM CHLOR 0.9% 1000 ML INJ 1,000 ML IV SCH ×2 (13:35→23:49)
[2016-10-10] MEDS: CALCIUM CARBONATE 500 MG CHEWABLE TAB CHEW PRN (17:30)
[2016-10-11] VITALS (7 sets, daily range): BP systolic 145–166; BP diastolic 76–90; PULSE 57–89; RESP 16–19; TEMP 96.4–98.5; O2SAT 96–99
[2016-10-11] MEDS: CALCIUM CARBONATE 500 MG CHEWABLE TAB CHEW PRN ×2 (03:26→13:00)
[2016-10-11] MEDS: hydrALAZINE HCL 20 MG/ML VIAL IV PUSH PRN (06:24)
[2016-10-11] MEDS: LOSARTAN 50 MG TAB PO SCH (08:03)
[2016-10-11] MEDS: METOPROLOL TARTRATE 50 MG TAB PO SCH (08:03)
[2016-10-11] MEDS: cloNIDine HCL 0.1 MG TAB PO SCH ×2 (08:03→12:58)
[2016-10-11] MEDS: SODIUM CHLORIDE 0.9% FLUSH 10 ML FLUSH IV FLUSH SCH (08:04)
[2016-10-11] MEDS ORDERED: COZA50TA PO (09:12)
[2016-10-11] MEDS: ACETAMINOPHEN 325 MG TAB PO PRN (10:07)
--- NOTE | 2016-10-11 10:44 | HHI.PR ---
Subjective Remarks Patient doing well laying in bed she had stress test which came back negative today Her CK continued to be in the 500 despite being on iv fluid Will give another 4 hours of iv fluid and patient was counseled to keep herself hydrated and avoid the heat Objective Vitals Vital Signs Date Time Temp Pulse Resp B/P Pulse Ox O2 Delivery O2 Flow Rate FiO2 10/11/16 08:00 98.5 82 19 166/76 99 10/11/16 07:00 64 10/11/16 06:20 166/90 10/11/16 05:39 96.4 72 16 96 10/11/16 01:12 96.6 57 16 156/86 97 10/10/16 23:00 69 10/10/16 21:57 97.6 68 20 142/80 96 10/10/16 20:00 96 21 10/10/16 16:34 96.9 73 19 149/80 97 10/10/16 15:01 72 10/10/16 12:33 96.5 63 19 158/78 97 I/O 10/10/16 10/10/16 10/10/16 10/11/16 10/11/16 10/11/16 07:00 15:00 23:00 07:00 15:00 23:00 Intake Total 0 ml 610 ml Balance 0 ml 610 ml Intake Oral 0 ml 450 ml IV Total 160 ml # Voids 1 5 2 # Bowel Movements 0 1 Result Diagram: 10/09/16 0532 10/09/1632 Objective Remarks GENERAL: This is a well-nourished, well-developed patient, in no apparent distress. SKIN: No rashes, warm and dry HEAD: Atraumatic. Normocephalic. EYES: Pupils equal round and reactive. Extraocular motions intact. No scleral icterus. ENT: Nose without bleeding, or drainage, Airway patent. NECK: Trachea midline. Supple CARDIOVASCULAR: Regular rate and rhythm 3/6 systolic murmur. RESPIRATORY: Fair air entry bilaterally. No wheezes, rales, or rhonchi. GASTROINTESTINAL: Abdomen soft, non-tender, nondistended. Positive bowel sounds MUSCULOSKELETAL: Extremities without clubbing, cyanosis, or edema. Pedal pulses appreciated NEUROLOGICAL: Awake and alert. Moves all extremity. Normal speech.no focal neurological deficit A/P Problem List: (1) Hypertensive urgency ICD Code: I16.0 Status: Acute (2) Chest pain ICD Code: R07.9 Status: Acute (3) GERD (gastroesophageal reflux disease) ICD Code: K21.9 Status: Acute (4) Hyperglycemia ICD Code: R73.9 Status: Acute (5) Aortic aneurysm ICD Code: I71.9 Status: Acute (6) Headache ICD Code: R51 Status: Acute Assessment and Plan 10/10: Appreciate cardiology consultation, blood pressure better controlled 152/ 69 today, for nuclear stress test today Rhabdomyolysis with elevated CK increased from 195-564: iv ns started , repeat ck in am 10/11: Stress test came back negative, CT is still in the 590, possibly due to the stress test, will give another 700 cc of iv fluid, patient wants to go home , I counseled her to keep herself hydrated and avoid staying in the heat Initial A/P: (1) Hypertensive urgency Admit the patient to intensive care unit, monitor vital signs Resume home medications. Patient is on clonidine 0.3 mg by mouth every 8 hours , however she was once on 0.1 minutes by mouth 3 times a day. I will discontinue clonidine 0.3 mg every 8 hours and continue findings are 0.1 mg by mouth 3 times a day. Continue metoprolol 50 ng by mouth every 12 hours. I will increase losartan 200 mg by mouth daily. Continue to monitor blood pressure and adjust antihypertensive medications as needed. Patient is currently off labetalol drip, continue hydralazine and labetalol when necessary. (2) Chest pain Patient has been complaining of chest pain on and off. Likely secondary to hypertensive urgency. Chest x-ray shows a blunted left lateral costophrenic angle, increased density seen at the left lung base. Small effusion versus consolidation listed as possibilities CTA of the thoracic aorta with IV contrast showed emphysematous changes. Coronary artery calcifications. Mild aneurysmal dilatation of the ascending aorta which measures 4.10.9 cm. No evidence of aortic dissection. Severe diverticulosis of the sigmoid colon and descending colon. Fatty infiltration of the liver. EKG on admission shows sinus rhythm with a ventricular rate of 74 bpm, no ST-T changes suggestive of ischemia. Repeat EKG. Troponin negative on admission, we'll repeat cardiac enzymes today. Consult cardiology - Dr Brenner Continue aspirin 325 mg by mouth daily. Continue nitroglycerin sublingual as needed for chest pain. (3) GERD (gastroesophageal reflux disease) The patient states she has had ulcers since she is 7 years old. She suffers from reflux symptoms for which she takes Tums. Patient however states she has never had upper endoscopy despite the prolonged symptoms. I will start the patient on Protonix and also continue calcium carbonate tablets. If symptoms do not improve with the above-mentioned measures then will considering consulting GI, otherwise the patient can follow-up as an outpatient. (4) Hyperglycemia No previous history of diabetes. Possibly secondary to stress. Check hemoglobin A1c. (5) Aortic aneurysm - Seen on CTA of the chest. Needs to be followed up as an outpatient with vascular surgery. (6) Headache Likely related to uncontrolled hypertension. CT of the head obtained on admission and negative for acute disease. Problem Qualifiers (1) Chest pain: Qualified Code: R07.9 - Chest pain, unspecified type (2) GERD (gastroesophageal reflux disease): Qualified Code: K21.9 - Gastroesophageal reflux disease, esophagitis presence not specified (3) Headache: Qualified Code: R51 - Acute nonintractable headache, unspecified headache type Rachele Hendrickson MD Oct 11, 2016 10:44
[2016-10-11 11:07] LABS: CKMB 4.5 NG/ML (0.5-3.6)
[2016-10-11] MEDS: SODIUM CHLOR 0.9% 1000 ML INJ 1,000 ML IV SCH (13:00)
--- NOTE | 2016-10-11 14:49 | HHI.DS ---
Discharge Summary Admission Date Oct 08, 2016 at 03:58 Discharge Date: Oct 11, 2016 Admitting Diagnosis Hypertensive urgency (1) Hypertensive urgency ICD Code: I16.0 (2) Chest pain ICD Code: R07.9 (3) GERD (gastroesophageal reflux disease) ICD Code: K21.9 (4) Hyperglycemia ICD Code: R73.9 (5) Aortic aneurysm ICD Code: I71.9 (6) Headache ICD Code: R51 Procedures Stress test nuclear Brief History - From Admission This is a 71-year-old female with reported past medical history of hypertension , SVT, hyperlipidemia, GERD who presented to [facility] complaining of chest pain and inability to control her blood pressure. The patient states that she takes multiple blood pressure medications and this past week because of her blood pressure remaining elevated she has doubled up on all her blood pressure medications but continues to have issues with that. Patient states that she has also had on-and-off chest pain, described as if "someone is squeezing my heart". Patient stated that yesterday she had chest pain which would radiate to the left side of the neck and the shoulder. Patient states that the chest pain subsided after her blood pressure was controlled in the emergency department. Patient also has been complaining of lightheadedness and headache which she attributes to her uncontrolled blood pressure. The moment of this interview the patient is complaining of reflux and heartburn. Denies chest pain or shortness of breath. She states that she has been nauseous and has had issues with heartburn which resolved after taking Tums. The patient denies fevers or chills, cough, diarrhea. States that she has been having palpitations while hospitalized although there is no evidence of arrhythmias on telemetry. The patient was seen in emergency department and found to have a very elevated blood pressure in the 220s systolic. The patient was then started on a labetalol drip which has been discontinued. Blood pressure improved transiently but now seems to be going up. Patient was also given aspirin and placed on a nitroglycerin patch. CBC/BMP: 10/09/16 0532 10/09/16 0532 Significant Findings Laboratory Tests Test 10/09/16 10/09/16 10/11/16 05:32 11:08 10:00 Hematocrit 34.9 % (35.0-46.0) Estimat Glomerular Filtration 73 ML/MIN (>89) Rate Random Glucose 111 MG/DL (74-106) Total Creatine Kinase 564 U/L 579 U/L (26-192) (26-192) Creatine Kinase MB 3.9 NG/ML 4.5 NG/ML (0.5-3.6) (0.5-3.6) Troponin I LESS THAN 0.02 NG/ML (0.02-0.05) PE at Discharge GENERAL: This is a well-nourished, well-developed patient, in no apparent distress. SKIN: No rashes, warm and dry HEAD: Atraumatic. Normocephalic. EYES: Pupils equal round and reactive. Extraocular motions intact. No scleral icterus. ENT: Nose without bleeding, or drainage, Airway patent. NECK: Trachea midline. Supple CARDIOVASCULAR: Regular rate and rhythm 3/6 systolic murmur. RESPIRATORY: Fair air entry bilaterally. No wheezes, rales, or rhonchi. GASTROINTESTINAL: Abdomen soft, non-tender, nondistended. Positive bowel sounds MUSCULOSKELETAL: Extremities without clubbing, cyanosis, or edema. Pedal pulses appreciated NEUROLOGICAL: Awake and alert. Moves all extremity. Normal speech.no focal neurological deficit Hospital Course 71 years old female admitted with Chest pain from which she complain on and off , hypertensive urgency and headache. Started on antihypertensive medication iv, Chest x-ray shows a blunted left lateral costophrenic angle, increased density seen at the left lung base. Small effusion versus consolidation listed as possibilities CTA of the thoracic aorta with IV contrast showed emphysematous changes. Coronary artery calcifications. Mild aneurysmal dilatation of the ascending aorta which measures 4.10.9 cm. No evidence of aortic dissection. Severe diverticulosis of the sigmoid colon and descending colon. Fatty infiltration of the liver. EKG on admission shows sinus rhythm with a ventricular rate of 74 bpm, no ST-T changes suggestive of ischemia. Repeat EKG. Troponin negative on admission, we'll repeat cardiac enzymes today. Cardiology consult aspirin nitroglycerin sublingual, cardiology ordered stress test nuclear which came back negative, recommended discharging a follow up as an outpatient with Dr. Brenner. [id number] encounter performed with the patient on discharge day, as well as physical exam, summary of hospitalization course and postdischarge plan has been Repeated CK was still high above 500, I discussed with the patient and explained to her that she needs to keep herself hydrated and avoid the heat in this hot summer, she was insisting on getting discharged today however she agreed on getting another 700 cc of normal saline prior to be discharged D/W the patient. D/W nurse D/W case sealer. Discharge medications reviewed and printed and signed, post discharge follow up visit with PCP and other specialist as well as Brief hospital course and discharge summary has been placed. Pt Condition on Discharge: Good Discharge Disposition: Discharge Home Discharge Time: > 30 minutes Discharge Instructions DIET: Follow Instructions for: Heart Healthy Diet Additional Diet Instructions: keep good hydration Activities you can perform: Regular-No Restrictions Follow up Referrals: Cardiology - 1 Week with Ryan Brenner DO New Orders: CREATININE KINASE - 2-3 Days New Medications: Losartan (Cozaar) 50 Mg Tab 100 MG PO DAILY htn #30 TAB Continued Medications: Aspirin (Aspirin) 325 Mg Tab 650 MG PO ONCE #1 Ref 0 TAB Clonidine (Clonidine) 0.1 Mg Tab 0.1 MG PO TID Blood Pressure Management #60 Ref 0 TAB Rachele Hendrickson MD Oct 11, 2016 14:49
== END 2016-10-11 17:40 | disposition home or self-care (01) | DRG 305 ==
LOC: PHED 00:09 → PHEDA 03:58 → PHICU 05:09 → PH3A 10-09 14:54
PROVIDERS: ADMIT Hospitalist; ATTEND Hospitalist
DX: I16.0 Hypertensive urgency (principal); M62.82 Rhabdomyolysis; I71.2 Thoracic aortic aneurysm, without rupture; K76.0 Fatty (change of) liver, not elsewhere classified; G62.9 Polyneuropathy, unspecified; I34.1 Nonrheumatic mitral (valve) prolapse; R07.89 Other chest pain; E78.5 Hyperlipidemia, unspecified; I10 Essential (primary) hypertension; K21.0 Gastro-esophageal reflux disease with esophagitis; R51 Headache; R73.9 Hyperglycemia, unspecified; E66.9 Obesity, unspecified; I25.10 Atherosclerotic heart disease of native coronary artery without angina pectoris; K57.30 Diverticulosis of large intestine without perforation or abscess without bleeding; M79.7 Fibromyalgia; Z68.34 Body mass index [BMI] 34.0-34.9, adult; Z88.0 Allergy status to penicillin; Z88.5 Allergy status to narcotic agent
CPT/HCPCS: 70450; 71010; 71275; 74174; 78452; 80048; 82550; 82552; 83735; 84484; 85025; 85610; 85730; 93005; 93017; 96374; 96375; A9502; J0360; J1885; J2785; J7030; Q9967